=== PATIENT | female | born 1970 | race Caucasian/White ===

== ENCOUNTER 2024-03-16 14:06 | Inpatient (IN) | payer OTHER ==
[2024-03-16 14:47] VITALS: BMI 21.9
[2024-03-16] MEDS ORDERED: DICYCLOMINE HCL 10 MG CAPSULE PO PRN (15:02)
[2024-03-16] MEDS ORDERED: LOPERAMIDE HCL 2 MG CAPSULE PO PRN (15:02)
[2024-03-16] MEDS ORDERED: guaiFENesin 600 MG TABLET.ER (FP) PO PRN (15:02)
[2024-03-16] MEDS ORDERED: BENZOCAINE/MENTHOL (CHLORASEPTIC ) LOZENGE MM PRN (15:02)
[2024-03-16] MEDS ORDERED: POLYETHYLENE GLYCOL (HEALTHYLAX) 3350 17 GM PACKET PO PRN (15:02)
[2024-03-16] MEDS ORDERED: BISMUTH SUBSALICYLATE 524 MG/30 ML PO PRN (15:02)
[2024-03-16] MEDS ORDERED: MAG HYDROX/AL HYDROX/SIMETH 30 ML UNIT-DOSE CUP PO PRN (15:02)
[2024-03-16] MEDS ORDERED: ACETAMINOPHEN 325 MG TABLET (FP) PO PRN (15:02)
[2024-03-16] MEDS ORDERED: IBUPROFEN 400 MG TABLET (FP) PO PRN (15:02)
[2024-03-16] MEDS ORDERED: NALOXONE (NARCAN) HCL 4 MG/0.1 ML SPRAY NS PRN (15:02)
[2024-03-16] MEDS ORDERED: ONDANSETRON *ODT* 4 MG TABLET ONE (16:12)
[2024-03-16] MEDS ORDERED: diazePAM 5 MG TABLET ONE (16:12)
[2024-03-16] MEDS: diazePAM 5 MG TABLET PO SCH (16:15)
[2024-03-16] MEDS: ONDANSETRON *ODT* 4 MG TABLET SL PRN (16:15)
[2024-03-16] MEDS: METHOCARBAMOL 500 MG TABLET PO PRN (21:56)
[2024-03-16] MEDS: diazePAM 5 MG TABLET PO PRN (21:56)
[2024-03-16] MEDS: THIAMINE 100 MG TABLET PO SCH (21:56)
[2024-03-16] MEDS: MELATONIN 5 MG TABLETS PO SCH (21:56)
[2024-03-17 09:27] LABS: CHLORIDE 103 mmol/L (98-107); HEMATOCRIT 41.1 % (32.4-45.2); HEMOGLOBIN 13.8 GM/dL (10.7-15.3); MCH 31.6 pg (25.7-33.7); MCHC 33.5 g/dl (32.0-36.0); MEAN CELL VOLUME 94.3 fl (80-96); MEAN PLT VOLUME 8.7 fl (7.5-11.1); PLATELET COUNT 212 10^3/uL (134-434); POTASSIUM 3.9 mmol/L (3.5-5.1); RBC 4.36 M/mm3 (3.60-5.2); RDW 14.2 % (11.6-15.6); SODIUM 137 mmol/L (136-145); WHITE BLOOD COUNT 6.5 K/mm3 (4.0-10.0)
[2024-03-17 10:07] LABS: GLUCOSE,RANDOM 95 mg/dL (74-106)
[2024-03-17 10:08] LABS: ALBUMIN 3.6 g/dl (3.4-5.0); ANION GAP 7 mmol/L (4-13); CALCIUM 8.8 mg/dL (8.5-10.1); CO2 27 mmol/L (21-32)
[2024-03-17 10:11] LABS: CREATININE 0.7 mg/dL (0.55-1.3); SGPT/ALT 33 U/L (13-61)
[2024-03-17 10:12] LABS: BILIRUBIN,TOTAL 0.6 mg/dL (0.2-1); SGOT/AST 28 U/L (15-37)
[2024-03-17 10:13] LABS: TOT PROT 6.9 g/dl (6.4-8.2)
[2024-03-17 10:14] LABS: ALK PHOS 98 U/L (45-117)
[2024-03-17] MEDS: PRENATAL VITAMINS W/ FOLIC ACID TABLET (FP) PO SCH (10:18)
[2024-03-17] MEDS: hydrOXYzine PAMOATE 25 MG CAPSULE (FP) PO PRN (17:36)
[2024-03-17] MEDS ORDERED: SUVOREXANT 10 MG TABLET PO PRN (22:00)
[2024-03-17] MEDS: SUVOREXANT 5 MG TABLET PO PRN (22:32)
[2024-03-18] MEDS: diazePAM 5 MG TABLET PO SCH (05:30)
[2024-03-18] MEDS: IBUPROFEN 600 MG TABLET (FP) PO PRN (22:32)
[2024-03-18] MEDS: BENZONATATE 200 MG CAPSULE PO PRN (22:34)
[2024-03-19] MEDS: diazePAM 5 MG TABLET PO SCH (05:53)
[2024-03-19] MEDS: NALOXONE (NYS OPIOID OVERDOSE PROGRAM) 4 MG/0.1 ML SPRAY NS SCH (12:15)
[2024-03-19] MEDS: GABAPENTIN 100 MG CAPSULE PO SCH (14:31)
[2024-03-19] MEDS: SUVOREXANT 5 MG TABLET PO PRN (22:01)
[2024-03-20] MEDS: diazePAM 5 MG TABLET PO ONE (05:45)
[2024-03-20] MEDS: MAGNESIUM HYDROX 2400MG/30ML ORAL SUSPENSION 30 ML CUP PO PRN (08:39)
[2024-03-20 12:53] VITALS: BP 121/80; PULSE 85; RESP 18; TEMP 98.9
== END 2024-03-20 13:19 | disposition other institution (70) | DRG 775 ==
LOC: YASAS 14:06 → Y6N 15:55
PROVIDERS: ADMIT Neuromusculoskeletal Medicine & OMM; ATTEND Surgery
PROC: HZ2ZZZZ Detoxification Services for Substance Abuse Treatment (ICD-10-PCS; principal; 2024-03-16)
DX: F10.230 Alcohol dependence with withdrawal, uncomplicated (principal); F12.20 Cannabis dependence, uncomplicated; F10.280 Alcohol dependence with alcohol-induced anxiety disorder; F10.282 Alcohol dependence with alcohol-induced sleep disorder; I10 Essential (primary) hypertension; R63.6 Underweight; Z68.21 Body mass index [BMI] 21.0-21.9, adult
CPT/HCPCS: 0241U-QW; 36415; 80053; 80305; 80307; 85027; 86780; 87811; 93005; 93010; Q0162